=== PATIENT | female | born 1975 | race African-American/Black ===

== ENCOUNTER → 2016-04-21 | Outpatient (CLI) | payer BC ==
[2013-12-07 05:55] VITALS: BP 121/67
--- NOTE | 2016-04-21 17:15 | RAD ---
Left hip, 2 views, 04/21/2016: History: Hip and low back pain, trauma No fracture or dislocation is identified. The joint space is well-preserved. IMPRESSION: No acute left hip abnormality is detected.
--- NOTE | 2016-04-21 17:16 | RAD ---
Lumbar spine, 3 views, 04/21/2016: History: Back pain, trauma There is a slight lumbar scoliosis. The vertebral heights are well-maintained. The intervertebral disc spaces are well preserved. There are minimal scattered marginal spurs. There are mild sclerotic changes involving the facet joints in the lower lumbar spine. The paraspinous soft tissues are unremarkable. IMPRESSION: 1. Minimal degenerative change. 2. No acute bony abnormality is detected.
== END | disposition home or self-care (01) ==
LOC: RAD 16:32
PROVIDERS: ATTEND Family Medicine
DX: M54.5 Low back pain (principal); M25.552 Pain in left hip
CPT/HCPCS: 72100; 73502